=== PATIENT | male | born 1990 ===

== ENCOUNTER 2017-01-17 20:23 | Emergency (ER) | payer SELFPAY ==
--- NOTE | 2017-01-18 22:59 | ER ---
ADMIT: 01/17/2017 RM/LOC: ER [facility] MR#: [id number] [address] [facility] [address] [place] [id number] ARIC CUMMINGS KYRA SEPULVEDA [address] [place] [address] Emergency Room Report SEX: M AGE: 26 : 1990 DATE: 01/17/2017 TIME: 2022 Please refer to my T-sheet for complete H and P. HISTORY OF PRESENT ILLNESS: Briefly, the patient is 26-year-old who states he has been under a lot of stress. He has been having headaches and dizziness for 3 days. He will start a new job on Saturday, he has been out of work 4-5 months. He has been sleeping more than usual, just does not feel well. He has a history of anxiety when he was young. He just feels generally weak, comes in for evaluation. PHYSICAL EXAMINATION: VITAL SIGNS: Here all stable. HEENT: Grossly normal. LUNGS: Clear. HEART: Regular. ABDOMEN: Soft, obese. SKIN: No rash. NEURO: He is alert, oriented, nonfocal, nonsuicidal. EMERGENCY DEPARTMENT COURSE: I checked his glucose, it was 111. Orthostatic blood pressures are normal. Long discussion with him. We are going to place him on Paxil and follow up. ASSESSMENT: 1. Anxiety and stress secondary to situational problems. 2. Morbid obesity. PLAN: Exercise, Paxil 20 mg a day. Return if worse. Follow up with Dr. Borja next week to recheck. Gal Bustamante MD/ venicel JOB #: [id number] CC: Gal Bustamante MD, Attending Physician Michael Borja MD, Family Physician
== END 2017-01-17 21:20 | disposition home or self-care (01) ==
LOC: ER 20:23
DX: F41.9 Anxiety disorder, unspecified (principal); F43.9 Reaction to severe stress, unspecified; E66.9 Obesity, unspecified; K21.9 Gastro-esophageal reflux disease without esophagitis

== ENCOUNTER 2017-02-06 06:08 | Emergency (ER) | payer SELFPAY ==
--- NOTE | 2017-02-06 19:09 | ER ---
ADMIT: 02/06/2017 RM/LOC: ER [facility] MR#: [id number] [address] [facility] [address] [place] [id number] KYRA CINTRON [address] [place] [address] Emergency Room Report SEX: M AGE: 26 : 1990 DATE: 02/06/2017 HISTORY OF PRESENT ILLNESS: The patient is a 26-year-old male, with no specific past medical history, came to the ER with chief complaint of 3 days of nonbilious, nonbloody vomiting and nausea and also suprapubic abdominal pain, which is crampy. The patient denies similar pain in the past. The patient denies taking any antibiotics and denied recent travel or similar problem in the household. The patient states he noticed 1 time just a few drops of blood after the bowel movement. PHYSICAL EXAMINATION: GENERAL: At the moment, the patient is in mild distress. VITAL SIGNS: Stable, the patient is afebrile, the patient is sitting in the bed. HEAD and NECK: Noncontributory. CHEST: Clear bilaterally. HEART: Normal heart sounds. ABDOMEN: No guarding and no rebound, but very mild tenderness in the suprapubic area. The rest of the physical exam is noncontributory. EMERGENCY ROOM COURSE: The patient received IV fluids, and pain was controlled, nausea was controlled. The patient was re-examined, the patient had benign abdominal exam. At this moment considering the presentation, gastroenteritis is at top of differentials. The patient can be discharged home with ciprofloxacin empiric therapy and follow up with the primary doctor as needed. Plan was discussed with the patient and he agreed upon it and acknowledged he understood it. Art Clay MD/ rosalinda JOB #: [id number] CC: Art Clay MD, Attending Physician
== END 2017-02-06 07:35 | disposition home or self-care (01) ==
LOC: ER 06:08
DX: K52.9 Noninfective gastroenteritis and colitis, unspecified (principal)

== ENCOUNTER 2017-02-06 17:33 | Emergency (ER) | payer SELFPAY ==
--- NOTE | 2017-02-23 08:19 | ER ---
ADMIT: 02/06/2017 RM/LOC: ER [facility] MR#: [id number] [address] [facility] [address] [place] [id number] KYRA CINTRON [address] [place] [address] Emergency Room Report SEX: M AGE: 26 : 1990 DATE: 02/06/2017 HISTORY OF PRESENT ILLNESS: This is a 26-year-old who visits the emergency room for the second time in less than 24 hours. He was here originally for abdominal pain and diarrhea and he has returned again for same. Now, he says he has a headache. This has been going on for 3 days. He works at [employer]. He did go to work on Saturday. He denies any fever, chills. Vomiting once in 24 hours. Diarrhea 5-6 times in a 24-hour period. He says he has seen a stain of red in the stool. Last bowel movement 2 hours ago. PHYSICAL EXAMINATION: VITAL SIGNS: His blood pressure within normal limits. He is febrile, low-grade fever 99.8, blood pressure 141/86, and pulse is 110, so he is tachycardic. ABDOMEN: Tenderness throughout with bloating. Obese. Mildly anxious. He does have a history of GERD. Diagnosis that was given to him this morning was gastroenteritis. I did do basic labs, which includes blood 1+, RBCs 10. He did receive IV fluids this morning. I did not give him any this afternoon. His glucose is 125. Sodium and potassium are normal. White count is normal 8.8 with a hemoglobin of 13.1, platelet count is 215. The patient also went for a CT scan without contrast dye, and on the scan, it was totally negative, DIAGNOSIS: He is diagnosed with abdominal pain, secondary to gastroenteritis. PLAN: Instructions given. Advised to start the antibiotics, given first dose in the ER. Follow up with PCP. Encouraged handwashing. A note for work was given for today and tomorrow. VIKTORIA Garrison / Brannon Montilla MD / rosalinda JOB #: [id number] CC: Brannon Montilla MD, Attending Physician Toribio John MD, Family Physician
== END 2017-02-06 23:10 | disposition home or self-care (01) ==
LOC: ER 17:33
DX: K52.9 Noninfective gastroenteritis and colitis, unspecified (principal); K21.9 Gastro-esophageal reflux disease without esophagitis; Z88.8 Allergy status to other drugs, medicaments and biological substances